=== PATIENT | male | born 1960 | race Caucasian/White ===

== ENCOUNTER 2020-01-05 16:21 | Inpatient (IN) | payer SELFPAY ==
[~2020-01-05 16:21] MED LIST: Bupivacaine PF 0.5% 30 ML VIAL ONE; Lidocaine 1% PF 5 ML VIAL ONE; PHENYLEPHRINE-NS 100 MCG/ML 10 ML SYRINGE ONE; PROPOFOL 200 MG/20 ML VIAL ONE
[2020-01-05] MEDS ORDERED: Bupivacaine 0.5% 10 ML VIAL ONE (16:55)
[2020-01-05] MEDS ORDERED: Bupivacaine 0.25% 10 ML VIAL ONE (16:56)
--- NOTE | 2020-01-05 17:34 | RAD ---
Radiograph right second digit 3 views: DATE: 01/05/2020 Time: 5:27 PM HISTORY: 59-year-old male status post acute traumatic injury to index finger. FINDINGS: The second distal phalanx is severely comminuted and displaced, along with large soft tissue defect, open fracture. One portion containing soft tissue and bone fragments is severely proximally displaced. There is fracture defect involving the ulnar side of the head of the middle phalanx. There is also truncation at the ulnar side of the head of the proximal phalanx. IMPRESSION: 1. Open kcogwwfa-tyyijkefmbrpfkl-njugremmis of second digit at the distal interphalangeal joint, with severe damage of the distal phalanx. 2. Truncations of the ulnar size of the heads of the middle and proximal phalanges.
[2020-01-05] MEDS ORDERED: Fentanyl 100 MCG/2 ML VIAL ONE (18:50)
[2020-01-05] MEDS ORDERED: Sodium Chloride 0.9% 0 ML ONE (18:53)
[2020-01-05] MEDS ORDERED: Bupivacaine PF 0.5% 30 ML VIAL ONE (18:53)
[2020-01-05] MEDS ORDERED: Bacitracin Zinc Ointment 30 gm TUBE ONE (18:53)
[2020-01-05] MEDS ORDERED: Gentamicin Sulfate 80 MG in Premix Bag 1 BAG IVPB ONE (19:00)
[2020-01-05] MEDS ORDERED: Milk Of Magnesia 30 ML UDCUP PO PRN (19:10)
[2020-01-05] MEDS ORDERED: Promethazine HCl 25 MG/ML VIAL IM PRN ×2 (19:10→21:27)
[2020-01-05] MEDS ORDERED: Fentanyl 100 MCG/2 ML VIAL SLOW IVP PRN (19:10)
[2020-01-05] MEDS ORDERED: Bisacodyl 10 MG SUPP PR PRN (19:10)
[2020-01-05] MEDS ORDERED: Morphine 4 MG/ML VIAL SLOW IVP PRN (19:10)
[2020-01-05] MEDS ORDERED: Ondansetron PF 4 MG/2 ML Vial IV PRN (19:10)
[2020-01-05] MEDS ORDERED: Ketorolac Tromethamine 30 MG/ML VIAL IVP PRN (19:14)
[2020-01-05] MEDS ORDERED: Meperidine HCl/PF 25 MG/ML VIAL IM PRN (19:14)
[2020-01-05] MEDS ORDERED: TETANUS AND DIPHTHERIA TOX/PF 0.5 ML DISP.SYRIN IM SCH (19:15)
[2020-01-05] MEDS ORDERED: Communication Order-Pharmacy FS SCH (19:15)
[2020-01-05] MEDS ORDERED: Clindamycin/D5W 900 MG in Premix Bag 1 BAG IVPB SCH (19:15)
[2020-01-05] MEDS ORDERED: Penicillin G Potassium 3 MILL.UNITS in Sodium Chloride 0.9% 100 ML IVPB SCH (19:15)
[2020-01-05] MEDS ORDERED: Gentamicin Sulfate 80 MG in Premix Bag 1 BAG IVPB SCH (19:45)
[2020-01-05] MEDS ORDERED: PROPOFOL 20 ML ONE (19:52)
[2020-01-05] MEDS ORDERED: Promethazine HCl 25 MG/ML VIAL SLOW IVP PRN (21:27)
[2020-01-05] MEDS ORDERED: Ondansetron HCl/PF 4 MG/2 ML Vial IVP PRN (21:27)
[2020-01-05 22:43] VITALS: BMI 22.8
[2020-01-05] MEDS: Aspirin 81 mg Enteric Coated Tablet PO SCH (23:24)
--- NOTE | 2020-01-05 23:28 | OP ---
DATE OF PROCEDURE: 01/05/2020 PREOPERATIVE DIAGNOSES: 1. Right index finger open distal phalanx fracture with bone loss. 2. Nail bed injury with marked nail bed loss. 3. Open fracture of middle phalanx subarticular without incomplete. 4. Open proximal phalangeal joint with large to an extensive central slip and lateral band laceration to loss of substance of the terminal tendon just before the distal interphalangeal joint, both radial and ulnar aspect. 5. Soft tissue defect, 2 cm x 1 cm with exposed bone and tendon loss of paratenon on the ulnar aspect of the middle phalanx. 6. Minimal contamination but only few gross part primarily in the distal phalanx, which was debrided and part of the nail bed which was unsalvageable. PROCEDURES PERFORMED: 1. Distal phalanx. a. Debridement of material associated with open fracture. b. Excision of bone cortex for treatment of open fracture. c. Excision of nail bed complete. 2. Middle phalanx. a. Debridement of material associated with open fracture. b. Debridement of wound. c. Rotational flap coverage of the end of the bone and chondral surface using the radial ulnar flaps remaining after the treatments outlined for the distal phalanx. d. Repair of central slip. e. Repair of lateral band. f. Application of 2 x 1.5 cm Integra graft. 3. PIP joint and proximal phalanx. a. Debridement of open joint. b. Repair of extensor tendon. c. Closure of wound. INDICATIONS FOR PROCEDURE: The patient had a saw entered longitudinally through the distal phalanx and then damaged skin over the middle phalanx and the PIP joint with impression fractures at the middle phalanx and PIP joint and loss of over 80% of the total surface area of the bone, the terminal tendon, and the flexor digitorum profundus with flexor digitorum superficialis intact. DESCRIPTION OF PROCEDURE: After successful general endotracheal anesthesia, the limb was prepped and draped. We inspected the flaps and there was circulation, 1 second refill on the ulnar flap and 1.5 second on the radial flap. The patient did smoke. We then immediately debrided and inspected the bone of the distal phalanx. We did excisional technique to include excising the bone cortex because there was literally a 0.5 mm rim radially and a 1 mm rim ulnarly with the rest of the distal phalanx pulverized and not visible. There was no chondral surface seen of the distal phalanx, no insertion of the terminal tendon due to terminal tendon was over 70% completely gone from beginning at the DIP joint proximally for 15 mm. We then used a curette, Hopi blade, 11 blade knife, tenotomy scissors to debride not only this wound but the remaining wounds. This was excisional technique. It included bone as well as material associated open fracture. Then, we inspected flaps and saw they maintained the same circulation pattern as described initially and that they would be viable for closure. We then used the same techniques to debride an impression fracture in the subchondral neck, radial greater than ulna of the middle phalanx as well as the joint of the PIP joint, which had a 3 mm x 2 mm opening in the area between the longitudinal loss of the central slip and small transverse and longitudinal loss of the lateral band. This was on the ulnar side of the PIP joint. Once we had finished debridement of the joint, the distal phalanx, middle phalanx using technique listed above, we irrigated with 5 L of Pulsavac pressure. Inspection of the loop showed no further particles. There was a small skin island of 2 mm x 2 mm, which we excised over the dorsal aspect of middle phalanx. Otherwise, we had exposed terminal tendon, terminal central slip, and the radial lateral and ulnar lateral band. The lateral band had been terminated before it became terminal tendon and a 15 mm area of bone was visible. Once we had completed the flap debridement, we removed the nail bed as well, so the nail bed was completely removed. Then, we obtained hemostasis. We saw the paratenon was gone even on the dorsal portion remnant of the terminal tendon, so we rotated the flap so that the flap with the best circulation was rotated more proximally and the other flap was used to cover more the chondral surface of the middle phalanx. They were sutured in place with 4-0 nylon and very stable. They maintained their 1.5 to 2 second capillary refill. Then, we performed the repair of the longitudinal laceration of central slip and the lateral band with lateral bands being brought up to the central slip to cover the joint defect. There was no evidence of gross contamination in any of these wounds at this point after debridement. The repair was done for longitudinal tear with a buried cyjnnp-aw-onors 5-0 Prolene. We then had finished much closure we could possibly have, had a 2.5 cm long by 0.5 cm wide area, where there was either a 6 mm x 4 mm area of exposed bone and remainder was terminal tendon and central slip without paratenon. The skin graft would not be applicable here, so we used Integra graft. We secured it with yo, but not placing the nail on the rotational flaps, then bolstered it with appropriate side down using bacitracin, Adaptic, and then mineral oil soaked cotton balls, which was also held down with yo. Then, we placed a bulky dressing to include very bulky over the finger itself and did not place Sylvester wrap over the finger and used a dorsal block splint with the MP joints about 45 degrees to help relax the palmar surfaces for circulation. He was then brought to recovery room with a dressing on, and will be admitted for dual antibiotics as well as aspirin and I instructed he and his brother not smoke. Job ID: [id number]
[2020-01-05] MEDS: Vancomycin 1 GM in Premix Bag 1 BAG IVPB SCH (23:37)
[2020-01-06 05:39] LABS: #Basophils 0.1 thou/uL (0.0-0.2); #Eosinphils 0.4 thou/uL (0.0-0.7); #Monocytes 0.9 thou/uL (0.11-0.59); #Neutrophils 5.2 thou/uL (1.40-6.50); %Basophils 0.9 % (0.0-1.0); %Eosinophils 5.1 % (0.0-10.0); %Lymphocytes 23.1 % (21.0-51.0); %Monocytes 10.2 % (0.0-10.0); %Neutrophils 60.6 % (42.0-75.0); Hemoglobin 14.5 g/dL (14.0-18.0); Mean Corpuscular Hemoglobin 32.4 pg (27.0-31.0); Mean Corpuscular Volume 95.4 fL (78.0-98.0); Mean Platelet Volume 8.5 fL (7.4-10.4); Platelet Count 238 thou/uL (130-400); RBC Distribution Width 11.4 % (11.5-14.5); Red Blood Cell (RBC) Count 4.47 mill/uL (4.70-6.10); White Blood Cell (WBC) Count 8.6 thou/uL (4.8-10.8)
[2020-01-06] MEDS: Aspirin 81 mg Enteric Coated Tablet PO SCH (08:42)
[2020-01-06] MEDS: HYDROcodone/Acetaminophen 5/325 mg Tablet PO PRN ×3 (08:42→16:26)
[2020-01-06] MEDS ORDERED: FLU VACC QS2019-20(6MOS UP)/PF 60 MCG/0.5 ML SYRINGE IM ONE (09:00)
[2020-01-06] MEDS: Vancomycin 1 GM in Premix Bag 1 BAG IVPB SCH (12:31)
--- NOTE | 2020-01-06 14:52 | EKG ---
Test Reason : Blood Pressure : / mmHG Vent. Rate : 057 BPM Atrial Rate : 057 BPM P-R Int : 172 ms QRS Dur : 090 ms QT Int : 404 ms P-R-T Axes : 082 030 042 degrees QTc Int : 393 ms Sinus bradycardia with sinus arrhythmia Otherwise normal ECG Confirmed by DANN GOLDBERG, BONNIE ([id number]), news editor ROBINA PARKS ([id number]) on 01/06/2020 2:51:58 PM Referred By: Confirmed By:BONNIE QUIGLEY MD
[2020-01-06 15:07] VITALS: BP 129/83; TEMP 98.4
== END 2020-01-06 16:00 | disposition home or self-care (01) | DRG 517 ==
LOC: ERS 16:21 → SDC/OP 20:20 → SURG A 22:06 → OBSVTOIN 22:06
PROVIDERS: ADMIT Orthopaedic Surgery Hand Surgery; ATTEND Orthopaedic Surgery Hand Surgery
PROC: 0PBT0ZZ Excision of Right Finger Phalanx, Open Approach (ICD-10-PCS; principal; 2020-01-05)
PROC: 0HBQXZZ Excision of Finger Nail, External Approach (ICD-10-PCS; 2020-01-05)
DX: S62.630B Displaced fracture of distal phalanx of right index finger, initial encounter for open fracture (principal); M85.841 Other specified disorders of bone density and structure, right hand; S62.622B Displaced fracture of middle phalanx of right middle finger, initial encounter for open fracture; W01.0XXA Fall on same level from slipping, tripping and stumbling without subsequent striking against object, initial encounter; F12.10 Cannabis abuse, uncomplicated
CPT/HCPCS: 36415; 64450; 85025; 93005; C9363; J1580; J2001; J2540; J2704; J3010; J3370; J3490; S0020

== ENCOUNTER 2020-02-04 08:05 | Day surgery (SDC) | payer SELFPAY ==
[2020-02-03 10:12] VITALS: BMI 22.8
[2020-02-04 09:14] LABS: Hemoglobin 15.8 g/dL (14.0-18.0); Mean Corpuscular HGB CONC 34.1 g/dL (32.0-36.0); Mean Corpuscular Hemoglobin 32.3 pg (27.0-31.0); Mean Corpuscular Volume 94.9 fL (78.0-98.0); Mean Platelet Volume 8.3 fL (7.4-10.4); Platelet Count 261 thou/uL (130-400); RBC Distribution Width 11.4 % (11.5-14.5); Red Blood Cell (RBC) Count 4.89 mill/uL (4.70-6.10); White Blood Cell (WBC) Count 6.8 thou/uL (4.8-10.8)
[2020-02-04] MEDS ORDERED: Midazolam HCl 2 mg/2 ml Vial ONE ×2 (09:24→11:53)
[2020-02-04] MEDS ORDERED: Ropivacaine 0.5% HCl/PF (150 MG/30 ML VIAL) ONE (11:32)
[2020-02-04] MEDS ORDERED: Bupivacaine 0.25% HCL 30 ML VIAL ONE (11:34)
[2020-02-04] MEDS ORDERED: Bacitracin Zinc Ointment 30 gm TUBE ONE (11:34)
[2020-02-04] MEDS ORDERED: Sodium Chloride 0.9% 10 ML ONE (11:35)
[2020-02-04] MEDS ORDERED: Fentanyl 100 MCG/2 ML VIAL ONE (11:52)
[2020-02-04] MEDS ORDERED: Lidocaine 2% Jelly 5 ML TUBE ONE (11:52)
[2020-02-04] MEDS ORDERED: Propofol 500 MG/50 ML VIAL ONE (11:53)
[2020-02-04] MEDS ORDERED: PROPOFOL 200 MG/20 ML VIAL ONE (13:16)
--- NOTE | 2020-02-04 22:03 | OP ---
DATE OF PROCEDURE: 02/04/2020 PREOPERATIVE DIAGNOSIS: Right hand index finger distal dorsal greater than palmar 3 x 2 cm wound treated previously with Integra. POSTOPERATIVE DIAGNOSIS: Right hand index finger distal dorsal greater than palmar 3 x 2 cm wound treated previously with Integra with excellent incorporation of Integra graft. PROCEDURES PERFORMED: 1. Debridement of wound. 2. Application of 4 x 1.5 cm split-thickness skin graft from the ipsilateral right antecubital fossa. COMPLICATIONS: No complications. TOURNIQUET TIME: None. ESTIMATED BLOOD LOSS: 10 mL. ANESTHESIA: Augmented with excellent right upper extremity block. INDICATIONS FOR PROCEDURE: The patient presented for staged wound management after debridement of power saw injury that left him with loss of the entire bony surface of the distal phalanx, but much of his skin was used as rotational flap once the area was debulked to include removal of nail injury and returns now to have the Integra graft removed and a split-thickness skin graft ipsilateral applied. DESCRIPTION OF PROCEDURE: After successful anesthesia listed above, limb was prepped and draped. Time-out was done appropriately and the site of surgery matched the site of prep. We then evaluated the wound by removing the Integra graft, saw there was no evidence of lack of healing with 100% Integra and take up by the structures of concern and we began to consider proceeding. Then, the graft was finally removed intraop. We saw the incorporation of the matrix from the Integra with excellent bleeding and no evidence of exposed bone. We then measured the area after we debrided it with tenotomy scissors, Meade blade, and curetted gently and then evaluated afterwards and had obtained hemostasis. We then saw that it was approximately 3 x 2 cm area and we felt that we could harvest this same surface area from the antecubital fossa, so we made a 4 x 2.25 cm harvest of the antecubital fossa, closed it primarily with 4-0 Monocryl and 2-0 nylon and prepared for his followup. Bulky dressing was applied on both sites with difference being we closed the donor site with a running subcu 4-0 Monocryl and a 4-0 nylon for epidermal closure skin layer. There was no evidence of anesthetic or operative complication. A bulky dressing. The patient left the operating room without evidence of anesthetic or operative complication. Job ID: [id number]
--- NOTE | 2020-02-05 09:51 | EKG ---
Test Reason : PREOP Blood Pressure : / mmHG Vent. Rate : 077 BPM Atrial Rate : 077 BPM P-R Int : 174 ms QRS Dur : 094 ms QT Int : 400 ms P-R-T Axes : 071 057 065 degrees QTc Int : 452 ms Sinus rhythm with frequent Premature ventricular complexes in trigeminal pattern abnormal When compared with ECG of 05-JAN-2020 18:47, Premature ventricular complexes are now Present QT has lengthened Confirmed by DR. Markell WARNER ([id number]) on 02/05/2020 9:50:30 AM Referred By: MARLEY Confirmed By:DR. Markell WARNER
== END 2020-02-04 15:10 | disposition home or self-care (01) ==
LOC: SDC 08:05
PROVIDERS: ATTEND Orthopaedic Surgery Hand Surgery
PROC: 0HRFX74 Replacement of Right Hand Skin with Autologous Tissue Substitute, Partial Thickness, External Approach (ICD-10-PCS; principal; 2020-02-04)
DX: S61.200A Unspecified open wound of right index finger without damage to nail, initial encounter (principal); W31.2XXA Contact with powered woodworking and forming machines, initial encounter
CPT/HCPCS: 36415; 85027; 93005; 93010; J0690; J2250; J2704; J3010; J3370; S0020